=== PATIENT | female | born 1975 | race Asian ===

== ENCOUNTER 2024-06-04 15:35 | Emergency (ER) | payer BC, OTHER ==
[~2024-06-04] VITALS: Ht 172.7 cm; Wt 77.0 kg
[2024-06-04 23:30] VITALS: BP 120/88; PULSE 88; RESP 16; TEMP 98.2; O2SAT 99
== END 2024-06-04 23:04 | disposition home or self-care (01) ==
LOC: ER 15:36 → EEVIPCON 15:36 → ER 23:04
DX: S06.0X0A Concussion without loss of consciousness, initial encounter (principal); Y08.89XA Assault by other specified means, initial encounter; Y93.89 Activity, other specified; Y92.89 Other specified places as the place of occurrence of the external cause; Y99.8 Other external cause status
CPT/HCPCS: 70450; 99284